=== PATIENT | female | born 1975 | race Caucasian/White ===

== ENCOUNTER 2019-09-23 10:54 | Inpatient (IN) | payer MEDICARE, MEDICAID ==
[2019-09-23] MEDS ORDERED: SODIUM CHLORIDE 0.9% 500 ML 500 ML IV STA (11:15)
[2019-09-23] MEDS ORDERED: SODIUM CHLORIDE 0.9% 1,000 ML IV STA (11:15)
[2019-09-23] MEDS ORDERED: ACTIVATED CHARCOAL 50 GM/240 ML BOTTLE NG-TUBE STA (11:15)
--- NOTE | 2019-09-23 11:25 | ED ---
General Adult HPI - General Chief complaint: Psychiatric Symptoms Stated complaint: Overdose Time Seen by Provider: 09/23/19 11:00 Source: patient, RN notes reviewed, old records reviewed Limitations: no limitations - History of Present Illness Initial comments: This is a 44-year-old female presents emergency Department stating she wants to commit suicide and she attempted today by taking 30 pills of prazosin. Patient states she did about 1520 minutes prior to arrival. Patient states she doesn't want to cooperate because he said she leaves this facility she will take a whole bottle again. Patient denies any symptoms currently she is very uncooperative and will not answer any other questions because I told him going to do a gastric lavage and give her charcoal. - Related Data Allergies Allergy/AdvReac Type Severity Reaction Status Date / Time Penicillins AdvReac Nausea & Verified 09/23/19 11:04 Vomiting Sulfa (Sulfonamide AdvReac Nausea & Verified 09/23/19 11:04 Antibiotics) Vomiting Review of Systems ROS Statement: Those systems with pertinent positive or pertinent negative responses have been documented in the HPI. ROS Other: All systems not noted in ROS Statement are negative. Past Medical History Past Medical History: No Reported History Additional Past Medical History / Comment(s): ptsd agoraphobia History of Any Multi-Drug Resistant Organisms: None Reported Additional Past Surgical History / Comment(s): c section x4 Past Psychological History: Anxiety, Depression, PTSD Smoking Status: Never smoker Past Alcohol Use History: None Reported Past Drug Use History: Marijuana General Exam - General Exam Comments Initial Comments: GENERAL: Patient is well-developed and well-nourished. Patient is nontoxic and well- hydrated and is in no acute distress. ENT: Neck is soft and supple. No significant lymphadenopathy is noted. Oropharynx is clear. Moist mucous membranes. Neck has full range of motion without eliciting any pain. EYES: The sclera were anicteric and conjunctiva were pink and moist. Extraocular movements were intact and pupils were equal round and reactive to light. Eyelids were unremarkable. PULMONARY: Unlabored respirations. Good breath sounds bilaterally. No audible rales rhonchi or wheezing was noted. CARDIOVASCULAR: There is a regular rate and rhythm without any murmurs gallops or rubs. ABDOMEN: Soft and nontender with normal bowel sounds. SKIN: Skin is clear with no lesions or rashes and otherwise unremarkable. NEUROLOGIC: Patient is alert and oriented x3. Cranial nerves II through XII are grossly intact. Motor and sensory are also intact. Normal speech, volume and content. Symmetrical smile. MUSCULOSKELETAL: Normal extremities with adequate strength and full range of motion. PSYCHIATRIC: Patient is very agitated states she is suicidal and states she took 30 prazosin 2 kill himself. Limitations: no limitations Course Vital Signs 09/23/19 09/23/19 09/23/19 10:59 11:03 12:03 Temperature 98.3 F Pulse Rate 84 96 Respiratory 20 20 20 Rate Blood Pressure 176/111 145/93 O2 Sat by Pulse 98 98 Oximetry 09/23/19 09/23/19 09/23/19 13:03 13:55 14:00 Temperature Pulse Rate Respiratory 20 20 20 Rate Blood Pressure O2 Sat by Pulse Oximetry 09/23/19 15:00 Temperature Pulse Rate 95 Respiratory 20 Rate Blood Pressure 154/84 O2 Sat by Pulse 100 Oximetry Medical Decision Making - Medical Decision Making EKG shows normal sinus rhythm at 79 bpm ID interval is 138 QRS is 112 QT interval 370 QTC is 424. Patient's EKG shows no ST segment elevation or depression. EPS evaluated the patient and filled out a petition. I immediately lavaged patient gave the patient 50 of charcoal. During lavaged process they got out quite a bit of pills the nurse thought it was at least 30 pills. I filled out a clinical certification. A repeat EKG was done that showed is normal sinus rhythm rate is 94 ID interval is 136 QRS is 114 Q-T intervals 352 QTC is 440. Patient's EKG shows no ST segment elevation or depression. - Lab Data Result diagrams: 09/23/19 13:32 09/23/19 12:45 Lab Results 09/23/19 09/23/19 09/23/19 Range/Units 12:28 12:28 12:45 WBC (3.8-10.6) k/uL RBC (3.80-5.40) m/uL Hgb (11.4-16.0) gm/dL Hct (34.0-46.0) % MCV (80.0-100.0) fL MCH (25.0-35.0) pg MCHC (31.0-37.0) g/dL RDW (11.5-15.5) % Plt Count (150-450) k/uL Neutrophils % % Lymphocytes % % Monocytes % % Eosinophils % % Basophils % % Neutrophils # (1.3-7.7) k/uL Lymphocytes # (1.0-4.8) k/uL Monocytes # (0-1.0) k/uL Eosinophils # (0-0.7) k/uL Basophils # (0-0.2) k/uL Sodium 132 L (137-145) mmol/L Potassium 4.7 (3.5-5.1) mmol/L Chloride 102 (98-107) mmol/L Carbon Dioxide 20 L (22-30) mmol/L Anion Gap 10 mmol/L BUN 15 (7-17) mg/dL Creatinine 0.72 (0.52-1.04) mg/dL Est GFR (CKD-EPI)AfAm >90 (>60 ml/min/1.73 sqM) Est GFR (CKD-EPI)NonAf >90 (>60 ml/min/1.73 sqM) Glucose 242 H (74-99) mg/dL Calcium 9.0 (8.4-10.2) mg/dL Total Bilirubin 0.2 (0.2-1.3) mg/dL AST 22 (14-36) U/L ALT 17 (4-34) U/L Alkaline Phosphatase 56 (38-126) U/L Total Protein 6.6 (6.3-8.2) g/dL Albumin 3.5 (3.5-5.0) g/dL Urine HCG, Qual Not Detected (Not Detectd) Salicylates <1.0 mg/dL Urine Opiates Screen Not Detected (NotDetected) Ur Oxycodone Screen Not Detected (NotDetected) Urine Methadone Screen Not Detected (NotDetected) Ur Propoxyphene Screen Not Detected (NotDetected) Acetaminophen <10.0 ug/mL Ur Barbiturates Screen Not Detected (NotDetected) U Tricyclic Antidepress Not Detected (NotDetected) Ur Phencyclidine Scrn Not Detected (NotDetected) Ur Amphetamines Screen Not Detected (NotDetected) U Methamphetamines Scrn Not Detected (NotDetected) U Benzodiazepines Scrn Not Detected (NotDetected) Urine Cocaine Screen Not Detected (NotDetected) U Marijuana (THC) Screen Detected H (NotDetected) Serum Alcohol <10 mg/dL 09/23/19 Range/Units 13:32 WBC 13.5 H (3.8-10.6) k/uL RBC 4.57 (3.80-5.40) m/uL Hgb 12.2 (11.4-16.0) gm/dL Hct 39.0 (34.0-46.0) % MCV 85.2 (80.0-100.0) fL MCH 26.6 (25.0-35.0) pg MCHC 31.3 (31.0-37.0) g/dL RDW 12.8 (11.5-15.5) % Plt Count 471 H (150-450) k/uL Neutrophils % 79 % Lymphocytes % 13 % Monocytes % 4 % Eosinophils % 2 % Basophils % 0 % Neutrophils # 10.7 H (1.3-7.7) k/uL Lymphocytes # 1.8 (1.0-4.8) k/uL Monocytes # 0.6 (0-1.0) k/uL Eosinophils # 0.3 (0-0.7) k/uL Basophils # 0.1 (0-0.2) k/uL Sodium (137-145) mmol/L Potassium (3.5-5.1) mmol/L Chloride (98-107) mmol/L Carbon Dioxide (22-30) mmol/L Anion Gap mmol/L BUN (7-17) mg/dL Creatinine (0.52-1.04) mg/dL Est GFR (CKD-EPI)AfAm (>60 ml/min/1.73 sqM) Est GFR (CKD-EPI)NonAf (>60 ml/min/1.73 sqM) Glucose (74-99) mg/dL Calcium (8.4-10.2) mg/dL Total Bilirubin (0.2-1.3) mg/dL AST (14-36) U/L ALT (4-34) U/L Alkaline Phosphatase (38-126) U/L Total Protein (6.3-8.2) g/dL Albumin (3.5-5.0) g/dL Urine HCG, Qual (Not Detectd) Salicylates mg/dL Urine Opiates Screen (NotDetected) Ur Oxycodone Screen (NotDetected) Urine Methadone Screen (NotDetected) Ur Propoxyphene Screen (NotDetected) Acetaminophen ug/mL Ur Barbiturates Screen (NotDetected) U Tricyclic Antidepress (NotDetected) Ur Phencyclidine Scrn (NotDetected) Ur Amphetamines Screen (NotDetected) U Methamphetamines Scrn (NotDetected) U Benzodiazepines Scrn (NotDetected) Urine Cocaine Screen (NotDetected) U Marijuana (THC) Screen (NotDetected) Serum Alcohol mg/dL Disposition Clinical Impression: Suicidal ideation, Depression Disposition: ADMITTED IP TO THIS HOSP Referrals: None,Stated [Primary Care Provider] - 1-2 days Time of Disposition: 15:15
[2019-09-23 13:07] LABS: ALT 17 U/L (4-34); AST 22 U/L (14-36); Acetaminophen <10.0 ug/mL; African American GFR (CKD) >90 (>60 ml/min/1.73 sqM); Albumin 3.5 g/dL (3.5-5.0); Alcohol <10 mg/dL; Alkaline Phosphatase 56 U/L (38-126); Anion Gap 10 mmol/L; Blood Urea Nitrogen 15 mg/dL (7-17); Carbon Dioxide 20 mmol/L (22-30); Chloride 102 mmol/L (98-107); Glucose 242 mg/dL (74-99); Non-African American GFR(CKD) >90 (>60 ml/min/1.73 sqM); Potassium 4.7 mmol/L (3.5-5.1); Salicylate <1.0 mg/dL; Sodium 132 mmol/L (137-145); Total Bilirubin 0.2 mg/dL (0.2-1.3); Total Protein 6.6 g/dL (6.3-8.2)
[2019-09-23 13:08] LABS: Amphetamine Screen,Urine Not Detected (NotDetected); Barbiturate Screen,Urine Not Detected (NotDetected); Benzodiazepines Screen,Urine Not Detected (NotDetected); Cocaine Screen,Urine Not Detected (NotDetected); Methadone Screen, Urine Not Detected (NotDetected); Opiate Screen,Urine Not Detected (NotDetected); Oxycodone Screen, Urine Not Detected (NotDetected); Phencyclidine Screen,Urine Not Detected (NotDetected); Tricyclic Antidepressant,Urine Not Detected (NotDetected); Urn Cannabinoid Scrn Detected (NotDetected)
[2019-09-23 13:46] LABS: Basophils # (A) 0.1 k/uL (0-0.2); Basophils % (A) 0 %; Eosinophils # (A) 0.3 k/uL (0-0.7); Eosinophils % (A) 2 %; HGB 12.2 gm/dL (11.4-16.0); Lymphocytes # (A) 1.8 k/uL (1.0-4.8); Lymphocytes % (A) 13 %; MCH 26.6 pg (25.0-35.0); MCHC 31.3 g/dL (31.0-37.0); MCV 85.2 fL (80.0-100.0); Mean Platelet Volume 6.7; Monocytes # (A) 0.6 k/uL (0-1.0); Monocytes % (A) 4 %; Neutrophils # (A) 10.7 k/uL (1.3-7.7); Neutrophils % (A) 79 %; Platelet Count 471 k/uL (150-450); RBC 4.57 m/uL (3.80-5.40); RDW 12.8 % (11.5-15.5); WBC 13.5 k/uL (3.8-10.6)
[2019-09-23] MEDS ORDERED: ACETAMINOPHEN TAB 325 MG TAB PO PRN (17:24)
[2019-09-23] MEDS ORDERED: MAGNESIUM HYDROXIDE 2,400 MG/10 ML CUP PO PRN (17:24)
[2019-09-23] MEDS ORDERED: LORazepam 1 MG TAB PO PRN (17:24)
[2019-09-23] MEDS ORDERED: ZIPRASIDONE 20 MG VIAL IM PRN (17:24)
[2019-09-23] MEDS ORDERED: MAG HYDROX/AL HYDROX/SIMETH 30 ML CUP PO PRN (17:24)
[2019-09-23] MEDS: busPIRone HCl 5 MG TAB PO SCH ×2 (18:08→23:14)
[2019-09-23] MEDS: MIRTAZAPINE 15 MG TAB PO SCH (21:02)
[2019-09-23] MEDS: DULoxetine HCL 60 MG CAPSULE.DR PO SCH (21:02)
[2019-09-23] MEDS: ARIPiprazole 10 MG TAB PO SCH (21:02)
[2019-09-23] MEDS ORDERED: BUSPIRONE HCL 15 MG PO SCH (22:00)
[2019-09-24] MEDS ORDERED: BUTALB/APAP/CAFF 50-325-40MG TAB PO STA (00:06)
[2019-09-24 08:17] LABS: Basophils # (A) 0.1 k/uL (0-0.2); Basophils % (A) 0 %; Eosinophils # (A) 0.2 k/uL (0-0.7); Eosinophils % (A) 1 %; HCT 39.4 % (34.0-46.0); HGB 12.2 gm/dL (11.4-16.0); Lymphocytes % (A) 23 %; MCH 26.5 pg (25.0-35.0); MCHC 30.9 g/dL (31.0-37.0); MCV 85.6 fL (80.0-100.0); Mean Platelet Volume 6.7; Monocytes # (A) 0.7 k/uL (0-1.0); Monocytes % (A) 5 %; Neutrophils # (A) 9.3 k/uL (1.3-7.7); Neutrophils % (A) 69 %; Platelet Count 472 k/uL (150-450); RDW 12.9 % (11.5-15.5); WBC 13.4 k/uL (3.8-10.6)
[2019-09-24 08:24] LABS: ALT 19 U/L (4-34); AST 28 U/L (14-36); African American GFR (CKD) >90 (>60 ml/min/1.73 sqM); Albumin 3.5 g/dL (3.5-5.0); Alkaline Phosphatase 61 U/L (38-126); Anion Gap 7 mmol/L; Blood Urea Nitrogen 11 mg/dL (7-17); Calcium 9.1 mg/dL (8.4-10.2); Carbon Dioxide 25 mmol/L (22-30); Chloride 106 mmol/L (98-107); Cholesterol 154 mg/dL (<200); Glucose 104 mg/dL (74-99); HDL Cholesterol 67 mg/dL (40-60); LDL Cholesterol,Calculated 57 mg/dL (0-99); Non-African American GFR(CKD) >90 (>60 ml/min/1.73 sqM); Potassium 5.1 mmol/L (3.5-5.1); Sodium 138 mmol/L (137-145); Total Bilirubin 0.3 mg/dL (0.2-1.3); Total Protein 6.4 g/dL (6.3-8.2); Triglycerides 148 mg/dL (<150)
[2019-09-24] MEDS: DULoxetine HCL 60 MG CAPSULE.DR PO SCH ×2 (09:08→21:08)
[2019-09-24] MEDS: busPIRone HCl 5 MG TAB PO SCH ×3 (09:08→21:08)
[2019-09-24] MEDS: PROPRANOLOL 10 MG TAB PO SCH (09:08)
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
--- NOTE | 2019-09-24 12:11 | P.CONS ---
History of Present Illness - Reason for Consult Consult date: 09/23/19 - History of Present Illness The patient is a 44-year-old female with a PMH of migraines, depression, anxiety, and PTSD who presented to the ED after an attempted suicide by ingestion of over 30 pills of Prazosin. The patient underwent gastric lavage with removal of several pills (~30 as per ED documentation) and was given activated charcoal. She was subsequently admitted to the mental health unit for depression and suicidal ideation where she was seen and evaluated earlier today. The patient notes that she doesn't wish to continue living anymore due to her ongoing PTSD. She reports continued suicidal ideation and notes that she will continue to attempt overdosing until she is successful. She also endorsed a mild 3 out of 10. Migraine headache but otherwise denied any additional complaints. She denied chest pain, shortness of breath, fever, chills, cough, nausea, vomiting, abdominal pain, or diarrhea. She also denied dizziness, urinary frequency, or visual disturbances. She underwent an extensive ev aluation in the emergency room with EKG showing normal sinus rhythm at 94 bpm with an incomplete right bundle david block with laboratory evaluation showing the CBC count 13.5, hemoglobin 12.2, platelets 471, sodium 132, potassium 4.7, CO2 20, BUN 15, creatinine 0.72, glucose 242, urine toxicology positive for marijuana. Review of Systems Pertinent positives and negatives as discussed in HPI, a complete review of systems was performed and all other systems are negative. Past Medical History Past Medical History: No Reported History Additional Past Medical History / Comment(s): ptsd agoraphobia History of Any Multi-Drug Resistant Organisms: None Reported Additional Past Surgical History / Comment(s): c section x4 Past Psychological History: Anxiety, Depression, PTSD Smoking Status: Never smoker Past Alcohol Use History: None Reported Past Drug Use History: Marijuana Medications and Allergies Home Medications Medication Instructions Recorded Confirmed Type ARIPiprazole [Abilify] 10 mg PO HS 09/23/19 09/23/19 History DULoxetine HCL [Cymbalta] 60 mg PO BID 09/23/19 09/23/19 History Mirtazapine [Remeron] 30 mg PO HS 09/23/19 09/23/19 History Prazosin HCl [Minipress] 2 mg PO HS 09/23/19 09/23/19 History Propranolol HCl 10 mg PO DAILY 09/23/19 09/23/19 History busPIRone HCL 15 mg PO TID 09/23/19 09/23/19 History Allergies Allergy/AdvReac Type Severity Reaction Status Date / Time Penicillins AdvReac Nausea & Verified 09/23/19 17:03 Vomiting Sulfa (Sulfonamide AdvReac Nausea & Verified 09/23/19 17:03 Antibiotics) Vomiting Physical Exam Vitals: Vital Signs Temp Pulse Pulse Resp BP BP Pulse Ox 09/23/19 17:34 97.7 F 93 16 149/91 98 09/23/19 16:12 20 09/23/19 15:00 95 20 154/84 100 09/23/19 14:00 20 09/23/19 13:55 20 09/23/19 13:03 20 09/23/19 12:03 96 20 145/93 98 09/23/19 11:03 20 09/23/19 10:59 98.3 F 84 20 176/111 98 Intake and Output 09/23/19 09/23/19 09/24/19 14:59 22:59 06:59 Other: Weight 102.829 kg General: non toxic, no distress, appears at stated age, morbidly obese Derm: no unusual rashes/lesions no unusual ecchymoses, warm, dry Head: atraumatic, normocephalic, symmetric Eyes: EOMI, no lid lag, anicteric sclera, pupils equal round reactive to light ENT: Nose and ears atraumatic, no thrush, no pharyngeal erythema Neck: No thyromegaly, no cervical lymphadenopathy, trachea midline, supple Mouth: no lip lesion, mucus membranes moist Cardiovascular: S1S2 reg, no murmur, positive posterior tibial pulse bilateral, no edema, capillary refill less than 2 seconds Lungs: CTA bilateral, no rhonchi, no rales , no accessory muscle use Abdominal: soft, nontender to palpation, no guarding, no appreciable organomegaly, normal bowel sounds Ext: no gross muscle atrophy, muscle strength 5 out of 5 in all 4 extremities grossly, no contractures, Neuro: CN II-XI grossly intact, light touch intact all 4 extremities, finger to nose within normal limits, Psych: Alert, oriented, depressed affect Results CBC & Chem 7: 09/23/19 13:32 09/23/19 12:45 Labs: Abnormal Lab Results - Last 24 Hours (Table) 09/23/19 09/23/19 09/23/19 Range/Units 12:28 12:45 13:32 WBC 13.5 H (3.8-10.6) k/uL Plt Count 471 H (150-450) k/uL Neutrophils # 10.7 H (1.3-7.7) k/uL Sodium 132 L (137-145) mmol/L Carbon Dioxide 20 L (22-30) mmol/L Glucose 242 H (74-99) mg/dL U Marijuana (THC) Screen Detected H (NotDetected) Assessment and Plan Plan: Overdose with Prazosin (alpha adrenergic antagonist) -Monitor for signs of toxicity, including dizziness, hypotension, visual disturbances, or urinary complaints Migraine headache -Patient reports that she has good control of her migraines at home with prn Fioricet use -Give single dose of Fioricet now Depression with suicidal ideation -As per psychiatry Leukocytosis, likely secondary to acute distress -No signs of active infection at this time Hyperglycemia -Check A1c Thank you for allowing us to participate in the care of this patient. We will follow peripherally. Do not hesitate to contact us with questions. Someone can be reached from the [facility] hospitalist group at all hours of the day at [phone].
[2019-09-24 21:03] LABS: Hemoglobin A1C 6.7 % (4.0-6.0)
[2019-09-24] MEDS: MIRTAZAPINE 15 MG TAB PO SCH (21:08)
[2019-09-24] MEDS: PRAZOSIN 1 MG CAP PO SCH (21:08)
[2019-09-24] MEDS: ARIPiprazole 10 MG TAB PO SCH (21:11)
[2019-09-25] MEDS: PROPRANOLOL 10 MG TAB PO SCH (08:35)
[2019-09-25] MEDS: DULoxetine HCL 60 MG CAPSULE.DR PO SCH ×2 (08:35→20:54)
[2019-09-25] MEDS: busPIRone HCl 5 MG TAB PO SCH ×3 (08:35→20:53)
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
[2019-09-25] MEDS: MIRTAZAPINE 15 MG TAB PO SCH (20:53)
[2019-09-25] MEDS: ARIPiprazole 10 MG TAB PO SCH (20:53)
[2019-09-25] MEDS: PRAZOSIN 1 MG CAP PO SCH (20:54)
[2019-09-26 04:36] VITALS: RESP 16
[2019-09-26 07:04] VITALS: BP 161/75; PULSE 101; TEMP 98.8
[2019-09-26] MEDS: DULoxetine HCL 60 MG CAPSULE.DR PO SCH (08:52)
[2019-09-26] MEDS: PROPRANOLOL 10 MG TAB PO SCH (08:52)
[2019-09-26] MEDS: busPIRone HCl 5 MG TAB PO SCH (08:52)
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
== END 2019-09-26 12:40 | disposition home or self-care (01) | DRG 885 ==
LOC: EC 10:54 → 3MHU 16:06
PROVIDERS: ADMIT Psychiatry & Neurology Psychiatry; ATTEND Psychiatry & Neurology Psychiatry
DX: F33.41 Major depressive disorder, recurrent, in partial remission (principal); Z68.42 Body mass index [BMI] 45.0-49.9, adult; T44.6X2A Poisoning by alpha-adrenoreceptor antagonists, intentional self-harm, initial encounter; E66.01 Morbid (severe) obesity due to excess calories; F43.10 Post-traumatic stress disorder, unspecified; F40.00 Agoraphobia, unspecified; G43.909 Migraine, unspecified, not intractable, without status migrainosus; R73.9 Hyperglycemia, unspecified; D72.829 Elevated white blood cell count, unspecified; Z91.5 Personal history of self-harm; Z79.899 Other long term (current) drug therapy; Z88.0 Allergy status to penicillin; Z88.2 Allergy status to sulfonamides; Z98.891 History of uterine scar from previous surgery; Z81.8 Family history of other mental and behavioral disorders
CPT/HCPCS: 36415; 43753; 80053; 80061; 80306; 80320; 80329; 81025; 82075; 83036; 83520; 84436; 84439; 84443; 84480; 85025; 93005; 96360; 99285